=== PATIENT | female | born 1950 | race Caucasian/White ===

== ENCOUNTER 2017-05-16 19:06 | Emergency (ER) | payer OTHER ==
--- NOTE | 2017-05-16 22:08 | ED CLINICAL REPORT ---
Clinical Report - Physicians/Mid Levels [facility] [address] [place] [address] 05/16/2017 19:09 Patient: NICHOLE HOLDEN Time Seen: 1931; upon arrival, initial patient contact, initial documentation, patient care assumed. Arrived- By private vehicle. Historian- patient. HISTORY OF PRESENT ILLNESS Chief Complaint: LOWER EXTREMITY PAIN and SWELLING. Not relieved by anything- worsened by standing and walking. Severity is described as being severe. The quality is noted to be "pain" and similar to prior episodes. It is described as radiating to the right thigh and left thigh. This started about 1 months ago and is still present and worsening. It was gradual in onset and has been constant. Symptoms located in the area of the right ankle, right leg, right foot, left leg, left foot and left ankle. The patient has had redness and swelling. She has had difficulty walking. No bladder dysfunction, bowel dysfunction, sensory loss or motor loss. ( says after shower one day, there were blisters on her lower legs, and they kept getting worse, and now legs are oozing and have sores, and are very swollen and painful). Patient denies an injury. Similar symptoms previously: None. Recent medical care: The patient was seen recently in the office. ( went to pcp for legs, says nothing was done). REVIEW OF SYSTEMS No cough, chest pain, fever, neck pain or back pain. She has had mild difficulty breathing on exertion. pt admits to not taking her dm meds, saying she is not diabetic anymore, it went away. All systems otherwise negative, except as recorded above. PAST HISTORY See nurses notes. ( PROBLEMS: Hypertension. Diabetes Mellitus. --19:25 Eileen Grimes, R.N. ADDITIONAL SURGERIES: Hysterectomy. Thyroid Surgery. --19:25 Eileen Grimes, Neda.Edy.). SOCIAL HISTORY Heavy tobacco smoker. No alcohol use or drug use. No recent travel. Is a local resident. She lives with spouse. FAMILY HISTORY Negative. ADDITIONAL NOTES The nursing notes have been reviewed with agreement regarding the chief complaint, HPI, ROS, PMH and patient medications and allergies. PHYSICAL EXAM Vital Signs: 05/16/2017 19:11 BP: 126/81. HR: 106. RR: 20. O2 saturation: 76%. Temp: 98 F. Pain level now: 05/03. Have been reviewed as abnormal and do not appear to be correct. Blood pressure normal. Tachycardic. Respiratory rate normal. Temperature normal. Oxygen saturation low. Appearance: Alert. Oriented X3. No acute distress. Eyes: Pupils equal, round and reactive to light. Eyes normal inspection. Neck: Normal inspection. Neck supple. CVS: Normal heart rate and rhythm. Heart sounds normal. Respiratory: No respiratory distress. Breath sounds normal. Back: Normal inspection. No tenderness. ROM normal. Skin: Skin intact. Skin warm and dry. Normal skin color. Normal skin turgor. Extremities: Lower extremities do not exhibit normal ROM. Lower extremity edema present. Swelling, warmth, tenderness, erythema and purulent drainage present in the right leg, right ankle and right foot and left leg, left ankle and left foot. No lymphangitis. Bilateral 4+ pitting edema of the lower extremities involving both feet, both ankles and both lower legs. No calf tenderness. (B lower legs with +4 pitting edema, almost circumferential erythema, warm, tender, open wounds to shins with pus and blood, foul smell, thick toenail fungus, unable to assess cap refill thru fungus, edema extends up to thighs, wounds and swelling do not appear acute like pt states). Extremities not otherwise negative. Gait: Abnormal gait. Limping gait. She was able to bear weight. Pain did not prevent testing gait. Neuro, Vascular and Tendons: Right dorsalis pedis pulse deficit. Left dorsalis pedis pulse deficit. Lower extremity capillary refill not prolonged. Neuro: Oriented X 3. No motor deficit. No sensory deficit. LABS, X-RAYS, AND EKG Laboratory Tests: CBC w Diff: (SHERI: 05/16/2017 20:34) ( MsgRcvd 05/16/2017 21:12) Final results Test Result Flag Units (Reference) WHITE BLOOD COUNT 7.6 K/uL (4.5-11.5) RED BLOOD COUNT 6.16 *H M/uL (4.00-5.20) HEMOGLOBIN 18.5 H gm/dL (12.0-16.0) HEMATOCRIT 58.2 H % (36.0-46.0) MEAN CELL VOLUME 94 fL (80-100) MEAN CORPUSCULAR HGB 30 pg (26-34) MEAN CORPUSCULAR HGB CONC 32 g/dL (31-37) RED CELL DISTRIBUTION WIDTH 15.7 H % (11.6-14.8) PLATELET COUNT 84 L K/uL (150-400) NEUTROPHIL % 78.3 H % (50-75) LYMPH % 10.6 L % (25-40) MONO % 10.2 % (3-14) EOSINOPHIL % 0.4 % (0-4) BASOPHIL % 0.5 % (0-2) BNP: (SHERI: 05/16/2017 20:34) ( [facility] 05/16/2017 21:25) Final results Test Result Flag Units (Reference) B-TYPE NATRIURETIC PEPTIDE 766 H pg/ml (5-100) Lactate, Serum: (SHERI: 05/16/2017 20:34) ( [facility] 05/16/2017 21:16) Final results Test Result Flag Units (Reference) LACTIC ACID 1.0 mmol/L (0.4-2.0) [id number]: (SHERI: 05/16/2017 20:34) ( [facility] 05/16/2017 21:47) Final results Test Result Flag Units (Reference) PROCALCITONIN <0.5 ng/mL (0-0.5) PCT Concentration: Interpretation : Risk/option for action PCT <=0.5 ng/mL : Systemic : Low risk forinfection(sepsis): progression to severeis not likely. : systemic infection.Local bacterial : CAUTION-PCT levelsinfection is : below 0.5 ng/mL do notpossible. : exclude an infection,because localizedinfections (withoutsystemic signs) may beassociated with suchlow levels. If PCT ismeasured very earlyafter a bacterialchallenge (usually <6hours), these valuesmay still be low. Inthis case PCT shouldbe re-assessed 6-24hours later. PCT >0.5 and : Systemic infection: Moderate risk for<= 2 ng/mL : (sepsis) is : progression to severepossible, but : systemic infection.other conditions : The patient should beare known to : closely monitoredelevate PCT. : both clinically andby re-assessing PCTwithin 6-24 hours. PCT > 2 ng/mL : Systemic infection: High risk for(sepsis) is likely: progression to severeunless other : systemic infection.causes are known. : PCT >= 10 ng/mL : Important systemic: High likelihood ofinflammatory : severe sepsis orresponse, almost : septic shock.exclusively due to:severe bacterial :sepsis or septic :shock. : CMP: (SHERI: 05/16/2017 20:34) ( MsgRcvd 05/16/2017 21:26) Final results Test Result Flag Units (Reference) GLUCOSE 93 mg/dL (70-110) BUN 30 H mg/dL (7-18) CREATININE 0.8 mg/dL (0.6-1.3) Estimated GFR >60 mL/min Estimated GFR- >60 mL/min Note: Persistent reduction over 3 months in eGFR<60 mL/min/1.73 m2 defines CKD. Patients with eGFR values>=60 mL/min/1.73 m2 may also have CKD if evidence ofpersistent proteinuria. Additional information may be foundat www.kidney.org. SODIUM 143 mmol/L (136-145) POTASSIUM 4.7 mmol/L (3.5-5.1) CHLORIDE 107 mmol/L (98-107) CARBON DIOXIDE 37 H mmol/L (21-32) CALCIUM 7.5 L mg/dL (8.5-10.1) TOTAL PROTEIN 5.5 L g/dL (6.4-8.2) ALBUMIN 2.6 L g/dL (3.3-5.0) BILIRUBIN, TOTAL 0.7 mg/dL (0.0-1.0) ALKALINE PHOSPHATASE 96 U/L (46-116) AST (SGOT) 18 U/L (15-37) ALT (SGPT) 19 U/L (12-78) . PROGRESS AND PROCEDURES Course of Care: concerns addressed during initial exam about severity of legs, low pulse ox, sats now 94% ra, and wound care and iv abx needed and mostly likely admit, pt saying she doesn't know if she can stay because she is watching young boy 19:49 05/16/17. HRBoss hearing aid technician informing pt refused xray 2129. nurse Eileen informing me pt is refusing to stay 2144. at bedside attempting to talk pt into staying, she is refusing admit, informed of all risks, including losing legs, infection, and pt declining admit 2149. Dr Steinberg at bedside assessing legs, and encouraging pt to stay, and pt still declining pt agreed to sign ama form for refusal of admit, agreed to give abx spouse admitting she has had the leg swelling and issues for a very long time, possibly years 22:10 05/16/17. ama form completed and given to nurse for pt to sign. 05/16/2017 21:30 BP: 115/70. HR: 95. RR: 15. O2 saturation: 80%. Pain level now: 5/10. Vital Signs: have been reviewed as normal and appear to be correct. Patient and spouse counseled in person several times regarding the patient's stable condition, test results and diagnosis. Differential Diagnosis: Other possible considerations: gangrene, cellulitis, dm ulcers, mrsa, peripheral vascular disease. Above considerations are based on history, physical exam, reassessment and laboratory data. Differential diagnosis was discussed with patient. Disposition: Discharged home in good and unchanged condition (22:08). Condition: good and stable. CLINICAL IMPRESSION Bilateral pedal edema secondary to unknown cause. No congestive heart failure, chronic venous insufficiency, cor pulmonale or hypoalbuminemia. Superficial diabetic ulcer on the right lower leg and left lower leg. Skin breakdown present. Exposed tissue. Inflammation and cellulitis present. Type 1 diabetes. No pressure ulcer, ischemic ulcer or venous stasis ulcer. INSTRUCTIONS Protect wound and keep wound area clean. Change dressing twice daily. Soak in warm soapy water twice daily. Apply neosporin twice daily. Warnings: Further evaluation is necessary in order to conduct further tests and assess the possibility of serious illness. It is very important to follow up with a physician. GENERAL WARNINGS: Return or contact your physician immediately if your condition worsens or changes unexpectedly, if not improving as expected, or if other problems arise. Specifically return if problem worsens. Prescription Medications: Cephalexin 500 mg: take 1 capsule orally every 6 hours for 10 days. No refill. Follow-up: Follow up with your doctor tomorrow even if well. Call for an appointment. Summary of care provided to patient and family. Understanding of the discharge instructions verbalized by patient. (Electronically signed by Jeane Stone A.R.N.P. 05/16/2017 23:05)
--- NOTE | 2017-05-16 22:08 | ED NURSING NOTES ---
Clinical Report - Nurses [facility] [address] [place] [address] 05/16/2017 19:09 Patient: NICHOLE HOLDEN TRIAGE Triage time 19:11. Acuity: LEVEL 3. Chief Complaint: RIGHT LOWER EXTREMITY PAIN, SWELLING and REDNESS. LEFT LOWER EXTREMITY PAIN, SWELLING and REDNESS. 19:30 05/16/17. Alert. No acute distress. SEPSIS SCREEN: Sepsis Screen. Negative (no infection suspected/documented). R[place]A COMA SCORE: [place] Coma Scale: 15- eyes open spontaneously (4); best verbal response- oriented x 4 (5); best motor response- obeys commands (6). --19:30 Eileen Grimes R.N. 19:11 05/16/17. BP: 126/81 taken on the left arm, while sitting. HR: 106. RR: 20. O2 saturation: 76% on room air. O2 started via nasal cannula at 3 liters/minute. Temp: 98 F. Pain level now: 05/03. --19:30 Eileen Grimes R.N. Weight: 47.6 kg estimated. Height/Length: 61 inches Per Patient. BMI: 19.8. --19:29 Eileen Grimes R.N. Medications Lisinopril Oral. --19:24 Eileen Grimes R.N. The following entry was struck by Eileen Grimes R.N., 19:24 (05/16/17) Reason - wrong value. <<STRICKEN ENTRY-- None. --19:22 Eileen Grimes R.N. --END STRIKE>>. Allergies Sulfa Antibiotics. --19:22 Eileen Grimes R.N. History Arrived by private vehicle. Historian: patient. Primary physician (Dr Fuller). No injury occurred. This occurred ("a few weeks ago"). It is described as radiating to the right lower extremity, thigh, knee and calf and left lower extremity, thigh, knee and calf. ( Patient states the swelling and redness in her legs have "gotten progressively worse". She states "I came in today because they started bleeding."). She has had difficulty breathing and trouble walking. ( Patient states "my is an alcoholic and I think I'm having problems breathing because I'm so stressed out."). Treatment VEHICLE REFINISHER: None. PAST MEDICAL HX: Tetanus status: up-to-date. Immunizations: up-to-date. SOCIAL HX: Heavy tobacco smoker- less than 1 pack per day. No alcohol use or drug use. NUTRITIONAL RISK ASSESSMENT: The nutritional risk assessment revealed no deficiencies. FUNCTIONAL ASSESSMENT: Functional assessment: no impairments noted. LEARNING NEEDS ASSESSMENT: The learning needs assessment revealed no barriers. ABUSE ASSESSMENT: Abuse assessment: The patient was asked "Do you feel safe in your home?". FALL RISK ASSESSMENT: Fall risk assessment completed. Risk factors identified include severe pain and patient age greater than 65 years. Fall interventions initiated. Brakes on Bed in low position. Patient identified as a fall risk by ID band. Call light in reach of patient. Instructed not to get up without assistance. SKIN INTEGRITY ASSESSMENT: Skin integrity risk assessment completed. No skin integrity risk identified. --19:30 Eileen Grimes R.N. PROBLEMS: Hypertension. Diabetes Mellitus. --19:25 Eileen Grimes R.N. ADDITIONAL SURGERIES: Hysterectomy. Thyroid Surgery. --19:25 Eileen Grimes R.N. Interventions ID band on patient. To treatment room. --19:30 Eileen Grimes R.N. PHYSICAL ASSESSMENT 19:43 05/16/17. Ambulatory to room. GENERAL / NEURO / PSYCH: Oriented X 4. Alert. Appears in no acute distress. EXTREMITIES: Erythema on the extremities. Serous drainage on the extremities. Increased warmth on the extremities. Calf tenderness. Non-pitting edema of the lower extremities. Extremity pulses are within normal limits. Extremities exhibit normal ROM. Right leg: tenderness, swelling and erythema. Right ankle: tenderness, swelling and erythema. Left leg: tenderness, swelling and erythema. Left ankle: tenderness, swelling and erythema. SKIN: Skin is warm. Blisters noted on both calves. --19:43 Eileen Grimes R.N. CVS: Pulses: right dorsalis pedis per doppler and left dorsalis pedis per doppler. Pulses otherwise normal. --20:30 Eileen Grimes R.N. NURSING PROGRESS NOTES 19:44 05/16/17. Two patient identifiers checked. Call light placed in reach. Side rails up x 2. Bed placed in lowest position. Brakes of bed on. --19:44 Eileen Grimes R.N. 20:00 05/16/2017 Site #1 started via IV in the left forearm with an 20g angiocath; two attempts. Saline lock flushed with 10 mL saline (no blood return with IV.). --20:10 Eileen Grimes R.N. 20:05 05/16/2017 Started bag #1 1000 mL IV Fluids IV NS (Saline); bolus of 1000 mL wide open via site #1. Allergies verified and confirmed 5 rights. IV patency established. IV site checked: no pain, redness, or swelling. IV flushed thoroughly pre- and post-medication administration. Completed per protocol. --20:10 Eileen Grimes R.N. 20:19. Patient ID band checked for patient name and birthdate: patient confirmed. Wound to right lower leg swabbed for aerobic culture; collected by nurse. Specimen labeled in the presence of the patient. --20:12 Eileen Grimes R.N. ( Pictures were taken/printed of patients wounds on both lower legs. Pictures placed in chart.). --20:46 Ariela Quintero 21:30 05/16/17. BP: 115/70. HR: 95. RR: 15. O2 saturation: 80% on room air. O2 started via nasal cannula at 2 liters/minute. Temp: deferred. Pain level now: 5/10. --21:32 Eileen Grimes R.N. 21:32 05/16/17. Patient informed about reason for wait and about plan of care. --21:33 Eileen Grimes R.N. 21:40. ( finger stick glucose 85 mg/dL. Patient and patient's spouse given extensive education about patient's plan of care.). --21:49 Eileen Grimes R.N. 22:12 05/16/2017 Started 1 gm of Ceftriaxone IVPB in bag #1 50 mL; at 120 mL/hr over 25 minute(s) via site #1 via IV pump. Allergies verified and confirmed 5 rights. IV patency established. IV site checked: no pain, redness, or swelling. IV flushed thoroughly pre- and post-medication administration. Completed per protocol. --22:17 Eileen Grimes R.N. 22:21 05/16/17. ( Patient's expressed concern that patient has not been given meal while here. Patient and family given education on Emergency Department goals of care. Patient offered snack, but denied any food or drink needs at this time.). --22:21 Eileen Grimes R.N. 22:40. Applied clean dressing consisting of antibiotic impregnated gauze. Secured with kerlix .9% total body surface area covered with dressing. --22:43 Eileen Grimes R.N. 22:34 05/16/2017 Ceftriaxone IVPB Discontinued: bag #1 completed upon discharge. Total amount infused: 50 mL. IV patency established. IV site checked: no pain, redness, or swelling. IV flushed thoroughly. --22:44 Eileen Grimes R.N. DISPOSITION / DISCHARGE 22:39 05/16/2017 Site #1 removed upon discharge. Catheter intact. Manual pressure and bandaid applied. --22:44 Eileen Grimes R.N. 22:40. No learning barriers present. Discharge instructions provided and reviewed with the patient and spouse. Reviewed warnings. Reviewed medication(s). Treatments reviewed. Reviewed referrals. Patient and spouse verbalized understanding. Written instructions provided in [place]. ( Patient urged extensively to fill abx prescription and to follow up with PCP.). The patient was discharged home and accompanied by spouse. She left the Emergency Department ambulatory and via private vehicle. Spouse driving. --22:46 Eileen Grimes R.N. 22:30 05/16/17. BP: 134/84 taken on the left arm, while lying. HR: 94. RR: 16. O2 saturation: 97% on nasal cannula at 2 liters/minute. Temp: 98.5 F. Pain level now: 5/10. --22:46 Eileen Grimes R.N. 22:21. ( Patient refusing admission. REHABILITATION AIDE/SCHEDULER notified, REHABILITATION AIDE/SCHEDULER and ED MD discussed risks of refusing admission with patient and her . Refusal of care form signed.). --22:48 Eileen Grimes R.N. Locked/Released at 05/16/2017 22:48 by Eileen Grimes R.N.
--- NOTE | 2017-05-16 22:08 | ED ORDER SUMMARY ---
..... Patient: NICHOLE HOLDEN OrderSheet [facility] VisitID: [id number] [address] [place] [address] 66y, F Registration Date/Time: 05/16/2017 ORDER SHEET Weight: 47.6 kg (estimated) Allergies: Sulfa Antibiotics GENERAL ORDERS: Culture, Wound Surface (Ankle) (R otvar ) Urgent (19:41 05/16/2017 HBivens A.R.N.P.) (Ack 19:45 CHagerty ER Licensed Plumber) (Collected 20:10 RMarsden R.N.) (20:44 JQuivey R.N.) Blood Culture (No) (N/A) Urgent (19:42 05/16/2017 HBivens A.R.N.P.) (Ack 19:45 CHagerty ER Licensed Plumber) (20:42 CHagerty ER Licensed Plumber) Chest 2V Urgent (19:42 05/16/2017 HBivens A.R.N.P.) (Ack 19:45 CHagerty ER Licensed Plumber) (Cancelled: Patient [id number]:17 RMarsden R.N.) CBC w Diff Urgent (19:42 05/16/2017 HBivens A.R.N.P.) (Ack 19:45 CHagerty ER Licensed Plumber) (20:42 CHagerty ER Licensed Plumber) CMP Urgent (19:42 05/16/2017 HBivens A.R.N.P.) (Ack 19:45 CHagerty ER Licensed Plumber) (20:42 CHagerty ER Licensed Plumber) BNP Urgent (19:42 05/16/2017 HBivens A.R.N.P.) (Ack 19:45 CHagerty ER Licensed Plumber) (20:42 CHagerty ER Licensed Plumber) Lactate, Serum Urgent (19:42 05/16/2017 HBivens A.R.N.P.) (Ack 19:45 CHagerty ER Licensed Plumber) (20:42 CHagerty ER Licensed Plumber) PCT (Procalcitonin) Urgent (19:42 05/16/2017 HBivens A.R.N.P.) (Ack 19:45 CHagerty ER Licensed Plumber) (20:42 CHagerty ER Licensed Plumber) Doppler Pulses (19:54 05/16/2017 HBivens A.R.N.P.) (20:22 RMarsden R.N.) MEDICATION ORDERS: IV FLUIDS: IV NS : initial bolus 1000 mL (1000 mL/hr), then none - (NOW) (19:41 05/16/2017 HBivens A.R.N.P.) (Ack 19:44 RMarsden R.N.) (20:10 RMarsden R.N.) IV Saline Lock (19:42 05/16/2017 HBivens A.R.N.P.) (Ack 19:44 RMarsden R.N.) (20:10 RMarsden R.N.) Ceftriaxone IV 1 gm/50mL (NOW) (22:02 05/16/2017 HBivens A.R.N.P.) (Ack 22:03 RMarsden R.N.) (22:17 RMarsden R.N.) ORDER SHEET NOTES: [Electronically signed by Eileen Grimes R.N. (22:48 05/16/2017)] [Electronically signed by Jeane StoneR.N.P. (23:05 05/16/2017)] [Electronically locked/signed by Eileen Grimes R.N. (22:48 05/16/2017)]
--- NOTE | 2017-05-16 22:08 | ED ORDER SUMMARY ---
..... Patient: NICHOLE HOLDEN OrderSheet [facility] VisitID: [id number] [address] [place] [address] 66y, F Registration Date/Time: 05/16/2017 ORDER SHEET Weight: 47.6 kg (estimated) Allergies: Sulfa Antibiotics GENERAL ORDERS: Culture, Wound Surface (Ankle) (R tovar ) Urgent (19:41 05/16/2017 HBivens A.R.N.P.) (Ack 19:45 CHagerty ER Veterinarian Assistant) (Collected 20:10 RMarsden R.N.) (20:44 JQuivey R.N.) Blood Culture (No) (N/A) Urgent (19:42 05/16/2017 HBivens A.R.N.P.) (Ack 19:45 CHagerty ER Veterinarian Assistant) (20:42 CHagerty ER Veterinarian Assistant) Chest 2V Urgent (19:42 05/16/2017 HBivens A.R.N.P.) (Ack 19:45 CHagerty ER Veterinarian Assistant) (Cancelled: Patient [id number] RMarsden R.N.) CBC w Diff Urgent (19:42 05/16/2017 HBivens A.R.N.P.) (Ack 19:45 CHagerty ER Veterinarian Assistant) (20:42 CHagerty ER Veterinarian Assistant) CMP Urgent (19:42 05/16/2017 HBivens A.R.N.P.) (Ack 19:45 CHagerty ER Veterinarian Assistant) (20:42 CHagerty ER Veterinarian Assistant) BNP Urgent (19:42 05/16/2017 HBivens A.R.N.P.) (Ack 19:45 CHagerty ER Veterinarian Assistant) (20:42 CHagerty ER Veterinarian Assistant) Lactate, Serum Urgent (19:42 05/16/2017 HBivens A.R.N.P.) (Ack 19:45 CHagerty ER Veterinarian Assistant) (20:42 CHagerty ER Veterinarian Assistant) PCT (Procalcitonin) Urgent (19:42 05/16/2017 HBivens A.R.N.P.) (Ack 19:45 CHagerty ER Veterinarian Assistant) (20:42 CHagerty ER Veterinarian Assistant) Doppler Pulses (19:54 05/16/2017 HBivens A.R.N.P.) (20:22 RMarsden R.N.) MEDICATION ORDERS: IV FLUIDS: IV NS : initial bolus 1000 mL (1000 mL/hr), then none - (NOW) (19:41 05/16/2017 HBivens A.R.N.P.) (Ack 19:44 RMarsden R.N.) (20:10 RMarsden R.N.) IV Saline Lock (19:42 05/16/2017 HBivens A.R.N.P.) (Ack 19:44 RMarsden R.N.) (20:10 RMarsden R.N.) Ceftriaxone IV 1 gm/50mL (NOW) (22:02 05/16/2017 HBivens A.R.N.P.) (Ack 22:03 RMarsden R.N.) (22:17 RMarsden R.N.) ORDER SHEET NOTES: [Electronically signed by Eileen Grimes R.N. (22:48 05/16/2017)] [Electronically signed by Jeane StoneR.N.P. (23:05 05/16/2017)] [Electronically locked/signed by Eileen Grimes R.N. (22:48 05/16/2017)]
--- NOTE | 2017-05-16 23:05 | ED MED RECONCILIATION SUMMARY ---
Patient: NICHOLE HOLDEN Medication Reconciliation Report [facility] VisitID: [id number] [address] [place] [address] 66y, F Registration Date/Time: 05/16/2017 Weight: 47.6 kg Height/Length: 61 in. BMI: 19.8 ALLERGIES: Sulfa Antibiotics The patient's Home Medications are listed below: THE FOLLOWING MEDICATIONS NEED TO BE RECONCILED: Lisinopril Oral The source(s) of the original Home Medication information: Not obtained. The following Medications were given to the patient in the Emergency Department: IV NS IV Fluids bolus 1000 mL wide open, administered: 05/16/2017 8:05:00 PM Ceftriaxone [IVPB] IVPB bolus 0, then 1 gm 120 mL/hr, administered: 05/16/2017 10:12:00 PM The following Medications were prescribed to the patient: Cephalexin 500 mg: take 1 capsule orally every 6 hours for 10 days. No refill. -- Jeane Stone A.R.N.PSayra
--- NOTE | 2017-05-16 23:05 | ED MED RECONCILIATION SUMMARY ---
Patient: NICHOLE HOLDEN Medication Reconciliation Report [facility] VisitID: [id number] [address] [place] [address] 66y, F Registration Date/Time: 05/16/2017 Weight: 47.6 kg Height/Length: 61 in. BMI: 19.8 ALLERGIES: Sulfa Antibiotics The patient's Home Medications are listed below: THE FOLLOWING MEDICATIONS NEED TO BE RECONCILED: Lisinopril Oral The source(s) of the original Home Medication information: Not obtained. The following Medications were given to the patient in the Emergency Department: IV NS IV Fluids bolus 1000 mL wide open, administered: 05/16/2017 8:05:00 PM Ceftriaxone [IVPB] IVPB bolus 0, then 1 gm 120 mL/hr, administered: 05/16/2017 10:12:00 PM The following Medications were prescribed to the patient: Cephalexin 500 mg: take 1 capsule orally every 6 hours for 10 days. No refill. -- Jeane Stone A.R.N.PSayra
--- NOTE | 2017-05-16 23:05 | ED DISCHARGE INSTRUCTIONS ---
Patient: NICHOLE HOLDEN General Instructions [facility] VisitID: [id number] [address] [place] [address] 66y, F Registration Date/Time: 05/16/2017 Bilateral pedal edema secondary to unknown cause. No congestive heart failure, chronic venous insufficiency, cor pulmonale or hypoalbuminemia. Superficial diabetic ulcer on the right lower leg and left lower leg. Skin breakdown present. Exposed tissue. Inflammation and cellulitis present. Type 1 diabetes. No pressure ulcer, ischemic ulcer or venous stasis ulcer. INSTRUCTIONS Protect wound and keep wound area clean. Change dressing twice daily. Soak in warm soapy water twice daily. Apply neosporin twice daily. Warnings: Further evaluation is necessary in order to conduct further tests and assess the possibility of serious illness. It is very important to follow up with a physician. GENERAL WARNINGS: Return or contact your physician immediately if your condition worsens or changes unexpectedly, if not improving as expected, or if other problems arise. Specifically return if problem worsens. Prescription Medications: Cephalexin 500 mg: take 1 capsule orally every 6 hours for 10 days. No refill. Follow-up: Follow up with your doctor tomorrow even if well. Call for an appointment. Summary of care provided to patient and family. Understanding of the discharge instructions verbalized by patient. ADDITIONAL INFORMATION Leg Swelling [Bilateral] Swelling of the feet, ankles and legs is called "Edema." It is due to excess fluid collecting in the tissues. Because of gravity, excess fluid in the body settles in the lowest part. This is why the legs and feet are most affected. Some of the causes for edema include: Disease of the heart (congestive heart failure or "CHF") Prolonged standing or sitting (with the legs in the down position) Infection of the feet or legs Venous Insufficiency (congestion of blood in the veins of the legs) Varicose veins (dilated veins of the lower leg) Garters, or clothing that constricts your legs. (These will cause venous congestion by restricting blood flow.) Some medicines (hormones such as control pills; some blood pressure medicines, such as calcium channel blockers; steroids; some antidepressants such as MAO inhibitors and tricyclics.) Menstrual periods with fluid retention Renal insufficiency (a form of kidney disease) Liver failure (Some swelling is normal, but a sudden increase in leg swelling or weight gain can be a sign of a dangerous complication of ). Medical treatment will depend on the cause of your swelling. Diuretics (water pills) may be prescribed to remove excess fluid. Home Care: Do not wear garments that constrict your legs (such as garters). Elevate your legs while lying or sitting. If infection, injury or recent surgery is the cause for your swelling, stay off your legs as much as possible until symptoms improve. If your doctor says that your leg swelling is caused by venous insufficiency or varicose veins, do not sit or in flight refueling manager one place for long periods of time. Take breaks and walk about every few hours. Brisk walking is a good exercise and helps circulate the congested blood from your leg. Talk to your doctor about the use of support stockings to prevent daytime leg swelling. If your doctor says that heart disease is the cause of your leg swelling, follow a low-salt diet to prevent excess fluid retention. Follow Up with your doctor or as advised by our staff. Get Prompt Medical Attention if any of the following occur: New or worsening shortness of breath or chest pain Increasing swelling in both legs or ankles Swelling of the abdomen Redness, warmth or swelling in one leg Fever of 100.4F (38C) or higher, or as directed by your healthcare provider Yellow color to the skin or eyes Rapid, unexplained weight gain Cephalexin Monohydrate Oral tablet What is this medicine? CEPHALEXIN (sef a MARTA in) is a cephalosporin antibiotic. It is used to treat certain kinds of bacterial infections It will not work for colds, flu, or other viral infections. How should I use this medicine? Take this medicine by mouth with a full glass of water. Follow the directions on the prescription label. This medicine can be taken with or without food. Take your medicine at regular intervals. Do not take your medicine more often than directed. Take all of your medicine as directed even if you think you are better. Do not skip doses or stop your medicine early. Talk to your inspector balance wheel motion regarding the use of this medicine in children. While this drug may be prescribed for selected conditions, precautions do apply. What side effects may I notice from receiving this medicine? Side effects that you should report to your doctor or health careers adviser as soon as possible: allergic reactions like skin rash, itching or hives, swelling of the face, lips, or tongue breathing problems pain or trouble passing urine redness, blistering, peeling or loosening of the skin, including inside the mouth severe or watery diarrhea unusually weak or tired yellowing of the eyes, skin Side effects that usually do not require medical attention (report to your doctor or health careers adviser if they continue or are bothersome): gas or heartburn genital or anal irritation headache joint or muscle pain nausea, vomiting What may interact with this medicine? probenecid some other antibiotics What if I miss a dose? If you miss a dose, take it as soon as you can. If it is almost time for your next dose, take only that dose. Do not take double or extra doses. There should be at least 4 to 6 hours between doses. Where should I keep my medicine? Keep out of the reach of children. Store at room temperature between 59 and 86 degrees F (15 and 30 degrees C). Throw away any unused medicine after the expiration date. What should I tell my health care provider before I take this medicine? They need to know if you have any of these conditions: kidney disease stomach or intestine problems, especially colitis an unusual or allergic reaction to cephalexin, other cephalosporins, penicillins, other antibiotics, medicines, foods, dyes or preservatives or trying to get breast-feeding What should I watch for while using this medicine? Tell your doctor or health careers adviser if your symptoms do not begin to improve in a few days. Do not treat diarrhea with over the counter products. Contact your doctor if you have diarrhea that lasts more than 2 days or if it is severe and watery. If you have diabetes, you may get a false-positive result for sugar in your urine. Check with your doctor or health careers adviser. You have been given the following additional information: Peripheral Edema, Bilateral Cephalexin Monohydrate Oral tablet (Electronically signed by Jeane Stone A.R.N.P. 05/16/2017 23:05)
--- NOTE | 2017-05-16 23:05 | ED MAR SUMMARY ---
..... Medication Administration Record [facility] [address] [place] [place] [address] Patient: NICHOLE HOLDEN Visit ID: [id number] 66y, F Weight: 47.6 kg Height/Length: 61 in BMI: 19.8 ALLERGIES: Sulfa Antibiotics Start 20:05 05/16/2017 Eileen Grimes R.N. Medication Administered: IV NS (SALINE), Dose: IV Fluids, Bolus: 1000 mL wide open, Dispensed: 1000 mL bag, Site: #1 left forearm. Medication Ordered: IV NS : initial bolus 1000 mL (1000 mL/hr), then none - (NOW). Start 22:12 05/16/2017 Eileen Grimes R.N., Stop 22:34 05/16/2017 Eileen Grimes R.N. Medication Administered: CEFTRIAXONE [IVPB], Dose: 1 gm IVPB over 25 minute(s), Rate: 120 mL/hr, Dispensed: 50 mL bag, Site: #1 left forearm. Medication Ordered: Ceftriaxone IV 1 gm/50mL (NOW).
--- NOTE | 2017-05-16 23:05 | ED DISCHARGE INSTRUCTIONS ---
Patient: NICHOLE HOLDEN General Instructions [facility] VisitID: [id number] [address] [place] [address] 66y, F Registration Date/Time: 05/16/2017 Bilateral pedal edema secondary to unknown cause. No congestive heart failure, chronic venous insufficiency, cor pulmonale or hypoalbuminemia. Superficial diabetic ulcer on the right lower leg and left lower leg. Skin breakdown present. Exposed tissue. Inflammation and cellulitis present. Type 1 diabetes. No pressure ulcer, ischemic ulcer or venous stasis ulcer. INSTRUCTIONS Protect wound and keep wound area clean. Change dressing twice daily. Soak in warm soapy water twice daily. Apply neosporin twice daily. Warnings: Further evaluation is necessary in order to conduct further tests and assess the possibility of serious illness. It is very important to follow up with a physician. GENERAL WARNINGS: Return or contact your physician immediately if your condition worsens or changes unexpectedly, if not improving as expected, or if other problems arise. Specifically return if problem worsens. Prescription Medications: Cephalexin 500 mg: take 1 capsule orally every 6 hours for 10 days. No refill. Follow-up: Follow up with your doctor tomorrow even if well. Call for an appointment. Summary of care provided to patient and family. Understanding of the discharge instructions verbalized by patient. ADDITIONAL INFORMATION Leg Swelling [Bilateral] Swelling of the feet, ankles and legs is called "Edema." It is due to excess fluid collecting in the tissues. Because of gravity, excess fluid in the body settles in the lowest part. This is why the legs and feet are most affected. Some of the causes for edema include: Disease of the heart (congestive heart failure or "CHF") Prolonged standing or sitting (with the legs in the down position) Infection of the feet or legs Venous Insufficiency (congestion of blood in the veins of the legs) Varicose veins (dilated veins of the lower leg) Garters, or clothing that constricts your legs. (These will cause venous congestion by restricting blood flow.) Some medicines (hormones such as control pills; some blood pressure medicines, such as calcium channel blockers; steroids; some antidepressants such as MAO inhibitors and tricyclics.) Menstrual periods with fluid retention Renal insufficiency (a form of kidney disease) Liver failure (Some swelling is normal, but a sudden increase in leg swelling or weight gain can be a sign of a dangerous complication of ). Medical treatment will depend on the cause of your swelling. Diuretics (water pills) may be prescribed to remove excess fluid. Home Care: Do not wear garments that constrict your legs (such as garters). Elevate your legs while lying or sitting. If infection, injury or recent surgery is the cause for your swelling, stay off your legs as much as possible until symptoms improve. If your doctor says that your leg swelling is caused by venous insufficiency or varicose veins, do not sit or lining machine operator one place for long periods of time. Take breaks and walk about every few hours. Brisk walking is a good exercise and helps circulate the congested blood from your leg. Talk to your doctor about the use of support stockings to prevent daytime leg swelling. If your doctor says that heart disease is the cause of your leg swelling, follow a low-salt diet to prevent excess fluid retention. Follow Up with your doctor or as advised by our staff. Get Prompt Medical Attention if any of the following occur: New or worsening shortness of breath or chest pain Increasing swelling in both legs or ankles Swelling of the abdomen Redness, warmth or swelling in one leg Fever of 100.4F (38C) or higher, or as directed by your healthcare provider Yellow color to the skin or eyes Rapid, unexplained weight gain Cephalexin Monohydrate Oral tablet What is this medicine? CEPHALEXIN (sef a MARTA in) is a cephalosporin antibiotic. It is used to treat certain kinds of bacterial infections It will not work for colds, flu, or other viral infections. How should I use this medicine? Take this medicine by mouth with a full glass of water. Follow the directions on the prescription label. This medicine can be taken with or without food. Take your medicine at regular intervals. Do not take your medicine more often than directed. Take all of your medicine as directed even if you think you are better. Do not skip doses or stop your medicine early. Talk to your safety patrol officer regarding the use of this medicine in children. While this drug may be prescribed for selected conditions, precautions do apply. What side effects may I notice from receiving this medicine? Side effects that you should report to your doctor or health long term care social worker as soon as possible: allergic reactions like skin rash, itching or hives, swelling of the face, lips, or tongue breathing problems pain or trouble passing urine redness, blistering, peeling or loosening of the skin, including inside the mouth severe or watery diarrhea unusually weak or tired yellowing of the eyes, skin Side effects that usually do not require medical attention (report to your doctor or health long term care social worker if they continue or are bothersome): gas or heartburn genital or anal irritation headache joint or muscle pain nausea, vomiting What may interact with this medicine? probenecid some other antibiotics What if I miss a dose? If you miss a dose, take it as soon as you can. If it is almost time for your next dose, take only that dose. Do not take double or extra doses. There should be at least 4 to 6 hours between doses. Where should I keep my medicine? Keep out of the reach of children. Store at room temperature between 59 and 86 degrees F (15 and 30 degrees C). Throw away any unused medicine after the expiration date. What should I tell my health care provider before I take this medicine? They need to know if you have any of these conditions: kidney disease stomach or intestine problems, especially colitis an unusual or allergic reaction to cephalexin, other cephalosporins, penicillins, other antibiotics, medicines, foods, dyes or preservatives or trying to get breast-feeding What should I watch for while using this medicine? Tell your doctor or health long term care social worker if your symptoms do not begin to improve in a few days. Do not treat diarrhea with over the counter products. Contact your doctor if you have diarrhea that lasts more than 2 days or if it is severe and watery. If you have diabetes, you may get a false-positive result for sugar in your urine. Check with your doctor or health long term care social worker. You have been given the following additional information: Peripheral Edema, Bilateral Cephalexin Monohydrate Oral tablet (Electronically signed by Jeane Stone A.R.N.P. 05/16/2017 23:05)
--- NOTE | 2017-05-16 23:05 | ED MAR SUMMARY ---
..... Medication Administration Record [facility] [address] [place] [address] Patient: NICHOLE HOLDEN Visit ID: [id number] 66y, F Weight: 47.6 kg Height/Length: 61 in BMI: 19.8 ALLERGIES: Sulfa Antibiotics Start 20:05 05/16/2017 Eielen Grimes R.N. Medication Administered: IV NS (SALINE), Dose: IV Fluids, Bolus: 1000 mL wide open, Dispensed: 1000 mL bag, Site: #1 left forearm. Medication Ordered: IV NS : initial bolus 1000 mL (1000 mL/hr), then none - (NOW). Start 22:12 05/16/2017 Eileen Grimes R.N., Stop 22:34 05/16/2017 Eileen Grimes R.N. Medication Administered: CEFTRIAXONE [IVPB], Dose: 1 gm IVPB over 25 minute(s), Rate: 120 mL/hr, Dispensed: 50 mL bag, Site: #1 left forearm. Medication Ordered: Ceftriaxone IV 1 gm/50mL (NOW).
== END 2017-05-16 22:48 | disposition home or self-care (01) ==
LOC: ED SRH 19:06
DX: R60.0 Localized edema (principal); E10.622 Type 1 diabetes mellitus with other skin ulcer; L97.921 Non-pressure chronic ulcer of unspecified part of left lower leg limited to breakdown of skin; L97.911 Non-pressure chronic ulcer of unspecified part of right lower leg limited to breakdown of skin; I10 Essential (primary) hypertension; Z72.0 Tobacco use
CPT/HCPCS: 90065; 90074; 90100; 90131; 90148; 90309; 90627; 91320; 92031; 93004; 95059